=== PATIENT | female | born 1990 | race Caucasian/White ===

== ENCOUNTER 2017-07-04 00:15 | Emergency (ER) | payer SELFPAY ==
[2017-07-04 00:15] VITALS: BMI 30.2
[2017-07-04 00:36] VITALS: O2SAT 100
[2017-07-04 01:00] LABS: SQUAMOUS EPITHIAL 2 /hpf (0-5); URINE BACTERIA RARE (<OCC); URINE BILIRUBIN NEGATIVE (NEGATIVE); URINE BLOOD NEGATIVE (NEGATIVE); URINE CLARITY Clear (Clear); URINE COLOR Straw (YELLOW); URINE GLUCOSE (UA) NORMAL (Normal); URINE LEUKOCYTE ESTERASE NEG Leu/uL (Negative); URINE PROTEIN NEGATIVE (NEGATIVE); URINE UROBILINOGEN NORMAL mg/dL (0.2-1.0)
--- NOTE | 2017-07-04 01:23 | C.PDOC ---
History Of Present Illness 26 y/o female presents to the ED c/o bilateral breast pain described as burning for the last 4 days. LMP was 06/02. She notes she had a similar episode a couple of years ago with no intervention. States she took Tylenol earlier with no relief. Denies swelling, fever, nipple discharge, chest pain, or SOB. (Paige Lomas) History Per: Patient History/Exam Limitations: no limitations Onset/Duration Of Symptoms: Days (x4) Current Symptoms Are (Timing): Still Present Time Seen by Provider: 07/04/17 00:38 Chief Complaint (Nursing): Breast Problem Past Medical History Reviewed: Historical Data, Nursing Documentation, Vital Signs Family History: States: Unknown Family Hx - Social History Hx Tobacco Use: No Hx Alcohol Use: Yes Hx Substance Use: No - Immunization History Hx Tetanus Toxoid Vaccination: No Hx Influenza Vaccination: No Hx Pneumococcal Vaccination: No Vital Signs: Last Vital Signs Temp 98.1 F 07/04/17 01:38 Pulse 71 07/04/17 01:38 Resp 17 07/04/17 01:38 BP 122/67 07/04/17 01:38 Pulse Ox 100 07/04/17 03:57 Review Of Systems Except As Marked, All Systems Reviewed And Found Negative. Constitutional: Negative for: Fever, Chills Cardiovascular: Positive for: Other (bilateral breast pain). Negative for: Chest Pain Respiratory: Negative for: Shortness of Breath Physical Exam - Physical Exam Appears: Well, Non-toxic, No Acute Distress Skin: Normal Color, Warm, Dry Head: Atraumatic, Normacephalic Eye(s): bilateral: Normal Inspection, EOMI Nose: Normal Oral Mucosa: Moist Neck: Normal ROM Chest: Symmetrical, Other (Tenderness diffusely to bilateral breasts. No swelling, induration, or nipple discharge) Cardiovascular: Rhythm Regular Respiratory: No Accessory Muscle Use Neurological/Psych: Oriented x3, Normal Speech, No Other (focal deficits) ED Course And Treatment O2 Sat by Pulse Oximetry: 100 (RA) Pulse Ox Interpretation: Normal Progress Note: Patient given Motrin. Ordered and reviewed urinalysis and urine HCG, which are negative. Patient instructed to take Motrin and follow up with [facility] for possible mammo. Dust Puller was used to ensure understanding. Disposition Counseled Patient/Family Regarding: Studies Performed, Diagnosis, Need For Followup, Rx Given - Disposition Disposition Time: :17 - POA Present On Arrival: None - Disposition Referrals: [facility] [Outside] Disposition: HOME/ ROUTINE Condition: STABLE Additional Instructions: Lolly un seguimiento con montague mdico en 1-2 trammell. Regrese a la caio de emergencias si los sntomas persisten o empeoran. 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 - Scribe Statement The provider has reviewed the documentation as recorded by the Scribe (Sisi Elmore) - Scribe Statement All medical record entries made by the Scribe were at my direction and personally dictated by me. I have reviewed the chart and agree that the record accurately reflects my personal performance of the history, physical exam, medical decision making, and the department course for this patient. I have also personally directed, reviewed, and agree with the discharge instructions and disposition. (Paige Lomas)
[2017-07-04 01:29] LABS: HCG,QUALITATIVE URINE NEGATIVE (NEGATIVE)
[2017-07-04 01:39] VITALS: BP 122/67; PULSE 71; RESP 17; TEMP 98.1
== END 2017-07-04 01:40 | disposition home or self-care (01) ==
LOC: C.ER 00:15
DX: N64.9 Disorder of breast, unspecified (principal)